=== PATIENT | female | born 1975 | race Caucasian/White ===

== ENCOUNTER 2017-09-30 16:16 | Emergency (ER) | payer OTHER, SELFPAY ==
[2017-09-30 16:17] VITALS: BP 146/62; PULSE 111; RESP 16; TEMP 37; O2SAT 98; BMI 38.9
--- NOTE | 2017-09-30 16:33 | ED.VISSUMM ---
- ER Visit Summary Date of Service: 09/30/17 Chief Complaint: Panic attack History of Present Illness: The patient is a 42 F history of anxiety. Patient states she has been fighting anxiety her whole life. Currently he is on Paxil and BuSpar. Driving home from work today, anxiety attack coming on. She was brought in today by her mother. She denies other symptoms. She is a ivz-incdfxh-kvlbtklyq diabetic. Physical Examination: Well appearing middle-aged female. Vital signs are stable afebrile. She does not look septic or toxic. She currently no acute distress. She is anxious but she is controlling it well currently. H EENT exam unremarkable and mildly tearful. Neck nontender no lymphadenopathy. Lungs clear all station bilaterally. Heart regular rhythm rate about 100 no murmur. Abdomen soft nontender. She is moving all 4 extremities. They are neurovascularly intact. She is equal and symmetrical radial pulses. Neurologically she is awake and alert with no focal motor deficits. Test Results: None Emergency Department Course and Treatment: Acute on chronic anxiety. She will be given 1 p.o. Ativan here. Observed she is doing well she will be discharged home. Treatment Plan: Use her home medications for anxiety. Follow-up with her physician. Disposition: Discharge Impression: Acute on chronic anxiety with panic attack History of ahx-hlhmkwn-mrskgtfrl diabetes This note was generated with [employer] dictation software. It may contain incorrect words, spelling, and punctuation that were not noted in review of the chart prior to signing ED Disposition - Plan for ED Patient: Chief Complaint: Anxiety Referrals: Kenia Leon MD [Primary Care Provider] -
--- NOTE | 2017-09-30 16:35 | ED.DEP ---
ED Disposition - Plan for ED Patient: Disposition: Home or Assisted Living Chief Complaint: Anxiety Instructions: ED Panic Attack Referrals: Kenia Leon MD [Primary Care Provider] - As Needed Additional Instructions: Follow-up with your physician as needed. Medications as prescribed. Return if feeling worse.
[2017-09-30] MEDS: LORazepam 1 MG Tablet PO ×2 (16:42→17:29)
== END 2017-09-30 17:31 | disposition home or self-care (01) ==
PROVIDERS: Emergency Provider Emergency Medicine; Family Provider Internal Medicine; PCP Internal Medicine
DX: F41.0 Panic disorder [episodic paroxysmal anxiety] (principal); E11.9 Type 2 diabetes mellitus without complications; Z79.84 Long term (current) use of oral hypoglycemic drugs; Z72.0 Tobacco use
CPT/HCPCS: 99283

== ENCOUNTER 2017-11-12 13:20 | Emergency (ER) | payer SELFPAY ==
[2017-11-12 13:20] VITALS: BP 198/123; PULSE 117; RESP 18; TEMP 36.3; O2SAT 98; BMI 38.2
--- NOTE | 2017-11-12 13:55 | ED.VISSUMM ---
- ER Visit Summary Date of Service: 11/12/17 Chief Complaint: Dizziness History of Present Illness: The patient is a 42 F who presents with dizziness and difficulty walking that began today. Patient states she was started on Vistaril and took her first dose today at approximately 10:30 AM. Patient states she has been getting more dizzy and has been having more difficulty walking ever since she took the Vistaril. Patient states this became worse approximately 1 hour ago. Patient states her dizziness improves when she closes her eyes. Patient denies any headaches. Patient denies any nausea or vomiting. Patient denies any chest pain. Patient denies any shortness of breath. Physical Examination: Vital signs are stable except for an elevated blood pressure 198/123 and a tachycardia of 117. Patient was anxious and tearful on exam. Cranial nerves II through XII are intact. There are no focal motor or sensory deficits noted. Pupils are equal, round, and reactive to light bilaterally. Extraocular muscles are intact. There is some mild nystagmus with right lateral gaze. Heart was regular and tachycardic. Lungs are clear and equal bilaterally. There is good respiratory effort noted. Abdomen is soft. Bowel sounds are normal. There is no tenderness. The remaining physical exam is within normal limits. Test Results: CBC is within normal limits. Basic metabolic profile showed a slightly elevated glucose of 130, CO2 was 19, chloride was slightly elevated at 108. CT scan of the brain does not show any acute intracranial abnormality. Emergency Department Course and Treatment: Patient was given a dose of lorazepam here. Patient felt better on reevaluation. Patient was instructed to follow-up with her primary care physician in 5-7 days. Patient was instructed to avoid taking her Vistaril. Patient understood and was agreeable with the plan. All questions were answered. Disposition: Discharge home Impression: Acute anxiety This note was generated with [employer] dictation software. It may contain incorrect words, spelling, and punctuation that were not noted in review of the chart prior to signing ED Disposition - Plan for ED Patient: Disposition: Home or Assisted Living Chief Complaint: Neuro S/Sx Diagnosis: Acute anxiety Instructions: ED Panic Attack Referrals: Kenia Leon MD [Primary Care Provider] -
[2017-11-12] MEDS: 0.9% Normal Saline 1,000 ML 1000 ML IV (14:12)
[2017-11-12] MEDS: LORazepam 1 MG Tablet PO (14:12)
[2017-11-12 14:25] LABS: Absolute Lymphocyte Count 2.01 X10^3/ul (0.83-4.51); Absolute Neutrophil Count 7.8 X10^3/uL (2.0-7.7); Basophil# 0.04 X10^3/uL; Basophil% 0.4 % (0-1); Eosinophil# 0.09 X10^3/uL; Eosinophils% 0.9 % (0-5); Hematocrit 42.3 % (37-47); Hemoglobin 14.1 g/dl (12.0-15.0); Lymphocyte # 2.01 X10^3/ul (4.0); Lymphocyte % 19.4 % (19-41); Mean Corp Hgb Conc 33.3 g/gl (32-36); Mean Corpuscular Hgb 28.7 pg (27.0-32.0); Mean Platelet Vol. 9.5 fl (6.2-12.0); Monocyte# 0.39 X10^3/uL; Monocyte% 3.8 % (0-10); Neutrophil # 7.83 X10^3/uL (2.7-7.7); Neutrophil % 75.4 % (47-70); Platelet Count 226 K/mm3 (150-450); RBC Distribution Width CV 14.2 % (11.6-14.6); RBC Distribution Width SD 44.4 fl (35.1-43.9); Red Blood Count 4.92 M/mm3 (4.2-5.4); White Blood Count 10.4 K/mm3 (4.4-11.0)
[2017-11-12 14:27] LABS: POSITIVE COUNT NO; POSITIVE DIFFERENTIAL NO; POSITIVE MORPHOLOGY NO
[2017-11-12 15:00] VITALS: BP 125/78; PULSE 83; RESP 20; O2SAT 97
[2017-11-12 15:18] LABS: ALB/GLOB Ratio 0.8 RATIO (0.9-2.4); AST(SGOT) 23 U/L (15-37); Alanine Aminotransfer ALT/SGPT 18 U/L (13-56); Albumin, Serum 3.4 g/dL (3.2-5.0); Alkaline Phosphatase 112 U/L (45-117); Anion Gap 9 (5-15); BUN 11 mg/dL (7-18); BUN/Creat Ratio 13.8 RATIO (10-20); Calcium,Total 8.7 mg/dL (8.5-10.1); Chloride 108 mmol/L (98-107); EST Glomerular Filtration Rate 84 mL/min (>60); Est Glom Filt Rate - Afr Amer 102 mL/min (>60); Estimated Creatinine Clearance 86.63 ml/min; Globulin 4.2 g/dL (2.2-4.2); Glucose 130 mg/dL (74-106); Potassium 3.9 mmol/L (3.5-5.1); Protein, Total 7.6 g/dL (6.4-8.2); Sodium Level 136 mmol/L (136-145)
[2017-11-12 15:50] VITALS: BP 127/86; PULSE 78; RESP 15; O2SAT 96
== END 2017-11-12 15:55 | disposition home or self-care (01) ==
PROVIDERS: Emergency Provider Emergency Medicine; Family Provider Internal Medicine; PCP Internal Medicine
DX: F41.9 Anxiety disorder, unspecified (principal); E11.9 Type 2 diabetes mellitus without complications; Z79.84 Long term (current) use of oral hypoglycemic drugs; Z79.899 Other long term (current) drug therapy; Z72.0 Tobacco use
CPT/HCPCS: 70450; 80053; 85025; 96360; 96361; 99285; J7030

== ENCOUNTER 2017-11-18 20:55 | Emergency (ER) | payer SELFPAY ==
[2017-11-18 20:56] VITALS: BP 173/118; PULSE 98; RESP 18; TEMP 37.1; O2SAT 100; BMI 38.2
--- NOTE | 2017-11-18 22:27 | ED.VISSUMM ---
- ER Visit Summary Date of Service: 11/18/17 Chief Complaint: Anxiety History of Present Illness: The patient is a [address] Leon. She reports that she has been seeing Topher Bocanegra, Dr. Leon has nurse practitioner, and has had a number of changes and her anxiety medications over the past month. She reports that her anxiety is much worse than usual. She is concerned about whether or not she can take Vistaril and Ativan together. Physical Examination: Vitals: Stable. Afebrile. General: Well-nourished and well-developed. Head: Normocephalic atraumatic. Neck: Supple, no lymphadenopathy. No JVD. Nontender. Cardiovascular: Regular rate and rhythm. No murmurs. Respiratory: No respiratory distress. Clear to auscultation bilaterally. Abdominal: Soft, nontender, nondistended, normal bowel sounds. No guarding, rebound, or peritoneal signs. Back: Nontender. Extremities: Nontender, no edema. Skin: Normal color, no rash. Neurologic: Alert and oriented ?3. Cranial nerves II through XII are intact. Normal strength and sensation. Mental status exam: Patient appears their stated age. Good posture and grooming. Good eye contact. Normal rate, volume, and latency of speech. No suicidal or homicidal ideation. No auditory or visual hallucinations. Flow of thought is logical. Insight and judgment is fair. Emergency Department Course and Treatment: Had a prolonged discussion with the patient about the treatment of her anxiety. States that the Ativan is not working well. I suggested that she take scheduled Vistaril and Ativan as needed in addition if needed. Treatment Plan: Patient is instructed to follow-up with the nurse practitioner soon as possible. She also reports that she has an appointment to see a psychiatrist in 1 week. Return to the emergency department for any worsening symptoms. Disposition: To home in improved and stable condition. Impression: 1. Anxiety. This note was generated with [employer] software. It may contain incorrect words, spelling, and punctuation that were not noted in review of the chart prior to signing ED Disposition - Plan for ED Patient: Disposition: Home or Assisted Living Chief Complaint: Anxiety Instructions: ED Panic Attack Referrals: Kenia Leon MD [Primary Care Provider] - As soon as possible
[2017-11-18 22:40] VITALS: RESP 16
== END 2017-11-18 22:50 | disposition home or self-care (01) ==
PROVIDERS: Emergency Provider Emergency Medicine; Family Provider Internal Medicine; PCP Internal Medicine
DX: F41.9 Anxiety disorder, unspecified (principal)
CPT/HCPCS: 99282

== ENCOUNTER 2018-04-30 11:06 | Emergency (ER) | payer OTHER, SELFPAY ==
[2018-04-30 11:07] VITALS: BP 176/98; PULSE 118; RESP 16; TEMP 36.6; O2SAT 98; BMI 38.7
--- NOTE | 2018-04-30 11:22 | ED.VISSUMM ---
- ER Visit Summary Date of Service: 04/30/18 Chief Complaint: Anxiety History of Present Illness: The patient is a 42 F history of anxiety and panic attacks. Also history of buw-yyihmpq-tezpqinpb diabetes and hypertension. Patient states that she has been dealing with anxiety and panic attacks her entire life. Currently she is on Xanax, Effexor and amitriptyline. She has been seeing a psychologist. They have her scheduled to see a psychiatrist and Garcia tomorrow. She states that she has been using increasing dosages of her Xanax to try to control her symptoms. She said it does not seem to be working. She is not suicidal. She is concerned that something is being managed medically. Physical Examination: Middle-aged female crying and tearful. Vital signs are stable. She does not look septic or toxic. She is emotionally distraught. H EENT exam unremarkable. Neck nontender. Lungs clear to auscultation bilaterally. Heart regular rhythm rate about 115. No murmur. Abdomen is soft and nontender. Normal bowel sounds. No peritoneal signs. Patient is moving all 4 extremities. Calves are nontender. Neurologically she is awake and alert with no focal motor deficits. Back is nontender. Skin is unremarkable. There are no signs of trauma. Test Results: None. I reviewed the patient's recent labs and she is had prior CAT scans all of which were negative. Emergency Department Course and Treatment: P.o. Ativan here. Treatment Plan: Short prescription of Ativan for the next couple days. Follow-up with her psychiatrist tomorrow. Disposition: Discharge Impression: Acute on chronic anxiety with panic attacks This note was generated with [employer] software. It may contain incorrect words, spelling, and punctuation that were not noted in review of the chart prior to signing ED Disposition - Plan for ED Patient: Referrals: Kenia Leon MD [Primary Care Provider] -
--- NOTE | 2018-04-30 11:25 | ED.DCSUM_ITS ---
- ER Visit Summary Date of Service: 04/30/18 Chief Complaint: Anxiety History of Present Illness: The patient is a 42 F history of anxiety and panic attacks. Also history of rpc-kfcswpb-btonpueed diabetes and hypertension. Patient states that she has been dealing with anxiety and panic attacks her entire life. Currently she is on Xanax, Effexor and amitriptyline. She has been seeing a psychologist. They have her scheduled to see a psychiatrist and Garcia tomorrow. She states that she has been using increasing dosages of her Xanax to try to control her symptoms. She said it does not seem to be working. She is not suicidal. She is concerned that something is being managed medically. Physical Examination: Middle-aged female crying and tearful. Vital signs are stable. She does not look septic or toxic. She is emotionally distraught. H EENT exam unremarkable. Neck nontender. Lungs clear to auscultation bilaterally. Heart regular rhythm rate about 115. No murmur. Abdomen is soft and nontender. Normal bowel sounds. No peritoneal signs. Patient is moving al l 4 extremities. Calves are nontender. Neurologically she is awake and alert with no focal motor deficits. Back is nontender. Skin is unremarkable. There are no signs of trauma. Test Results: None. I reviewed the patient's recent labs and she is had prior CAT scans all of which were negative. Emergency Department Course and Treatment: P.o. Ativan here. Treatment Plan: Short prescription of Ativan for the next couple days. Follow- up with her psychiatrist tomorrow. Disposition: Discharge Impression: Acute on chronic anxiety with panic attacks This note was generated with [employer] software. It may contain incorrect words, spelling, and punctuation that were not noted in review of the chart prior to signing ED Disposition - Plan for ED Patient: Referrals: Kenia Leon MD [Primary Care Provider] -
--- NOTE | 2018-04-30 11:25 | ED.DEP ---
ED Disposition - Plan for ED Patient: Disposition: Home or Assisted Living Instructions: ED Panic Attack Prescriptions: Lorazepam [Ativan] 1 mg PO TID #7 tab Referrals: Kenia Leon MD [Primary Care Provider] - As Needed Additional Instructions: Ativan as needed for your anxiety. Continue your current medications. Very important to follow-up with your psychiatrist appointment tomorrow. Return if feeling worse.
[2018-04-30] MEDS: LORazepam 1 MG Tablet PO (11:37)
[2018-04-30 11:50] VITALS: RESP 14
== END 2018-04-30 12:17 | disposition home or self-care (01) ==
LOC: ED 11:37
PROVIDERS: Emergency Provider Emergency Medicine; Family Provider Internal Medicine; PCP Internal Medicine
DX: F41.0 Panic disorder [episodic paroxysmal anxiety] (principal); I10 Essential (primary) hypertension; E11.9 Type 2 diabetes mellitus without complications; Z79.84 Long term (current) use of oral hypoglycemic drugs; Z79.899 Other long term (current) drug therapy; Z72.0 Tobacco use
CPT/HCPCS: 99284

== ENCOUNTER 2018-07-11 18:21 | Emergency (ER) | payer OTHER, SELFPAY ==
[2018-07-11 18:23] VITALS: BP 157/70; PULSE 95; RESP 18; TEMP 36.7; O2SAT 98; BMI 38.2
--- NOTE | 2018-07-11 18:40 | CT_ITS ---
STUDY: CT BRAIN WITHOUT CONTRAST REASON FOR EXAM: Female, 42 years old. Double vision. Blurred vision. Anxiety. RADIATION DOSAGE (If Supplied By Facility): CTDIvol = ( 44.99 ) mGy, DLP = ( 779.24 ) mGycm TECHNIQUE: Transaxial CT imaging of the brain was performed without administration of intravenous contrast material. Individualized dose optimization techniques were used for this CT. COMPARISON: November 12, 2017. FINDINGS: Normal soft tissue structures. Normal calvarium. Normal size ventricles and extra-axial spaces for the patient's age. Normal white matter tracts of the cerebral hemispheres. Normal basal ganglia and thalami. Normal brainstem. Normal cerebellum. There is no intracranial hemorrhage. There are no findings of an acute ischemic infarction. Normal visualized paranasal sinuses. CT/Brain/Head without Contrast IMPRESSION: Normal unenhanced CT scan of the brain. Electronically Signed: Reid Godoy MD at 19:27 EDT , Service support ,
--- NOTE | 2018-07-11 18:41 | EKG12_ITS ---
Test Reason : NUMB Blood Pressure : / mmHG Vent. Rate : 081 BPM Atrial Rate : 081 BPM P-R Int : 164 ms QRS Dur : 100 ms QT Int : 378 ms P-R-T Axes : 052 056 050 degrees QTc Int : 439 ms Normal sinus rhythm Normal ECG Confirmed by SHERIN MATIAS, BETSY ([id number]), editor newspaper JAIME PATRICK ([id number]) on 07/16/2018 10:52:54 AM Referred By: DENNYS Confirmed By:BETSY DUFF MD
[2018-07-11] MEDS: 0.9% Normal Saline 1,000 ML 1000 ML IV (18:55)
[2018-07-11 19:21] LABS: Absolute Lymphocyte Count 3.42 X10^3/ul (0.83-4.51); Absolute Neutrophil Count 5.9 X10^3/uL (2.0-7.7); Basophil# 0.03 X10^3/uL; Basophil% 0.3 % (0-1); Hematocrit 37.7 % (37-47); Hemoglobin 12.4 g/dl (12.0-15.0); Lymphocyte # 3.42 X10^3/ul (4.0); Lymphocyte % 34.5 % (19-41); Mean Corp Hgb Conc 32.9 g/gl (32-36); Mean Corpuscular Hgb 26.4 pg (27.0-32.0); Mean Corpuscular Volume 80.2 fL (81-99); Mean Platelet Vol. 9.5 fl (6.2-12.0); Monocyte# 0.51 X10^3/uL; Monocyte% 5.1 % (0-10); Neutrophil # 5.85 X10^3/uL (2.7-7.7); Platelet Count 294 K/mm3 (150-450); RBC Distribution Width CV 14.7 % (11.6-14.6); RBC Distribution Width SD 42.7 fl (35.1-43.9); White Blood Count 9.9 K/mm3 (4.4-11.0)
[2018-07-11 19:23] LABS: Anion Gap 7 (5-15); BUN 14 mg/dL (7-18); BUN/Creat Ratio 17.5 RATIO (10-20); Calcium,Total 8.7 mg/dL (8.5-10.1); Chloride 103 mmol/L (98-107); EST Glomerular Filtration Rate 84 mL/min (>60); Est Glom Filt Rate - Afr Amer 101 mL/min (>60); Estimated Creatinine Clearance 86.63 ml/min; Glucose 208 mg/dL (74-106); Potassium 3.9 mmol/L (3.5-5.1); Sodium Level 134 mmol/L (136-145)
[2018-07-11 19:28] LABS: POSITIVE COUNT NO; POSITIVE DIFFERENTIAL NO; POSITIVE MORPHOLOGY NO
[2018-07-11 19:58] LABS: Internal QC Validated? YES +Cl - CLEAR BKGD; Pregnancy, Serum, hCG Quali. NEGATIVE Negative
--- NOTE | 2018-07-11 21:22 | ED.DCSUM_ITS ---
- ER Visit Summary Date of Service: 07/11/18 Chief Complaint: Double vision History of Present Illness: The patient is a [address] Duncan. She reports that she has double vision that began approximately 5:00 this evening. States that she has had 2 episodes and each of the last approximately 20 min utes. During these episodes she also reports that her vision was blurred. Her face felt flushed. She reports that the tip of her tongue became numb and she had perioral numbness the second time. This was circumferential. She denies any difficulty talking. She denies any expressive or receptive aphasia. No vertigo. No weakness to her arms or her legs. No numbness to her arms or legs. Patient reports that she does have a long-standing history of anxiety. She has seen a psychiatrist and today was the first day that she was changed from Xanax 0.5 mg twice daily to Klonopin 0.5 mg twice daily. She took her second dose of this approximately an hour prior to the onset of the symptoms. She has not worn glasses for approximately 12 years. No contacts. However, she does have an appointment to see an weaver dobby loom in 2 weeks. Physical Examination: Vitals: Stable. Afebrile. General: Well-nourished and well-developed. Head: Normocephalic atraumatic. Neck: Supple, no lymphadenopathy. No JVD. Nontender. Cardiovascular: Regular rate and rhythm. No murmurs. Respiratory: No respiratory distress. Clear to auscultation bilaterally. Abdominal: Soft, nontender, nondistended, normal bowel sounds. No guarding, rebound, or peritoneal signs. Back: Nontender. Extremities: Nontender, no edema. Skin: Normal color, no rash. Neurologic: Alert and oriented ?3. Cranial nerves II through XII are intact. Normal strength and sensation. NIH scale is 0. Vision is normal at this time. Psych: Normal affect. Test Results: EKG is sinus at 81 with no acute changes. CBC is normal. Chem-7 is marked for sodium 134 and glucose of 2 8. test is negative. Clinical Impression(s) from Imaging Studies Brain CT 07/11/18 18:40 IMPRESSION: Normal unenhanced CT scan of the brain. Electronically Signed: Reid Godoy MD at 19:27 EDT , Service support , Emergency Department Course and Treatment: Patient rested comfortably while here. She had no double vision while here. Her NIH scale is 0. I did discuss with her that the dose from Xanax to Klonopin is lower than usual and offered her Ativan. However, she refused this. Treatment Plan: This time I feel patient is stable for discharge. She will be discharged with instructions to follow-up Dr. Judd tomorrow for another exam. Follow-up with Dr. Leon as soon as possible. Return to the emergency d epartment for any worsening symptoms. Disposition: To home in improved and stable condition. Impression: 1. Transient diplopia, uncertain cause. This note was generated with [employer] dictation software. It may contain incorrect words, spelling, and punctuation that were not noted in review of the chart prior to signing ED Disposition - Plan for ED Patient: Disposition: Home or Assisted Living Instructions: ED Double Vision Referrals: Kenia Leon MD [Primary Care Provider] - 1 Day for another exam Damion Judd MD [STAFF PHYSICIAN] - As soon as possible
[2018-07-11 21:52] VITALS: BP 108/62; PULSE 98; RESP 16; O2SAT 96
== END 2018-07-11 21:53 | disposition home or self-care (01) ==
LOC: ED 18:47
PROVIDERS: Emergency Provider Emergency Medicine; Family Provider Internal Medicine; PCP Internal Medicine
DX: H53.2 Diplopia (principal); F41.9 Anxiety disorder, unspecified; E11.9 Type 2 diabetes mellitus without complications; Z79.84 Long term (current) use of oral hypoglycemic drugs; Z72.0 Tobacco use
CPT/HCPCS: 70450; 80048; 84703; 85025; 93005; 96360; 96361; 99284; J7030

== ENCOUNTER → 2019-12-06 17:09 | Outpatient (CLI) | payer MEDICAID, SELFPAY | PROVIDERS: PCP Nurse Practitioner Primary Care; Referring Provider Clinical Nurse Specialist; Visit Provider Clinical Nurse Specialist | DX: J40 Bronchitis, not specified as acute or chronic (principal) | CPT/HCPCS: 87635; C9803; U0003 ==

== ENCOUNTER 2020-05-27 19:48 | Emergency (ER) | payer MEDICAID, SELFPAY ==
[2020-05-27 19:49] VITALS: BP 123/90; PULSE 100; RESP 18; TEMP 36.4; O2SAT 98; BMI 38.7
--- NOTE | 2020-05-27 20:03 | CT_ITS ---
STUDY: CTA CHEST REASON FOR EXAM: Female, 44 years old. chest/back pain RADIATION DOSAGE (If Supplied By Facility): CTDIvol = ( 16.76 ) mGy, DLP = ( 1710.49 ) mGycm TECHNIQUE: The examination was performed with the intravenous administration of IV 100mL Isovue-370. Post-processing of the angiographic images was performed, with multiplanar reformation and 3D reconstruction. Individualized dose optimization techniques were used for this CT. COMPARISON: None. FINDINGS: Normal enhancement of the main pulmonary artery and right and left pulmonary arteries. Normal enhancement of the bilateral peripheral pulmonary arteries. There is no demonstrated pulmonary embolism. Normal thoracic aorta and visualized great vessels. There is no demonstrated aortic dissection. Normal heart and pericardium. Normal mediastinum. Normal hilar regions. Normal visualized trachea and bronchi. The lungs are well expanded. Normal pulmonary parenchyma. Normal pleura. Normal chest wall structures. Normal osseous structures. Normal visualized upper abdomen. CT/CTA Chest W/WO Contrast IMPRESSION: Normal CTA chest examination, without a demonstrated pulmonary embolism or arterial dissection. Electronically Signed: Lacey Schroeder MD at 21:30 EST , Service support ,
--- NOTE | 2020-05-27 20:04 | ED.VISSUMM ---
- ER Visit Summary Date of Service: 05/27/20 Chief Complaint: [Right side pain] History of Present Illness: The patient is a 44 F [[place] to the emergency department with complaint of pain in her right side for 3 to 4 months. Patient states that she had Covid in January and she thinks she has had pain since about that time. Patient states the pain is there all the time and she has a hard time getting out of bed secondary the pain. Pain is at times radiating to her back. Pain worse with breathing and movement. Mild increase in dyspnea with activity. Patient states that she had an asthmatic bronchitis flare a couple weeks ago where she was on prednisone as well as antibiotic after she had all her teeth pulled. Patient has history of diabetes, hypertension, high cholesterol. She is never had a PE or DVT. 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 Physical Examination: [HEENT-PERRLA, EOMI. Cranial nerves II through XII grossly intact. TMs clear. Mucous membranes moist. No adenopathy. Cardiovascular-regular rate and rhythm without murmur or ectopy Lungs-clear to auscultation, chest wall stable without crepitus or subcu emphysema. I am unable to reproduce her pain with palpation of the chest wall. Abdomen-normoactive bowel sounds, soft, nontender, no rebound or rigidity, no peritoneal signs. Extremities-intact ?4, normal range of motion, normal pulses, atraumatic] Test Results: [cbc unremarkable, bmp unremarkable, glucose 238, CT-flank- unremarkable, CTA-chest normal ] Emergency Department Course and Treatment: [,IV established and refused pain meds.] Treatment Plan: [Follow up with PCP in 3-5 days. Return if worsening pain, or shortness of breath.] Disposition: [Discharged home in stable condition ] Impression: [Right Flank/Back pain] This note was generated with [employer] dictation software. It may contain incorrect words, spelling, and punctuation that were not noted in review of the chart prior to signing ED Disposition - Plan for ED Patient: Referrals: Topher Bocanegra NP, MARKETING REP-C [Primary Care Provider] -
--- NOTE | 2020-05-27 20:11 | CT_ITS ---
STUDY: CT ABDOMEN AND PELVIS WITHOUT CONTRAST REASON FOR EXAM: Female, 44 years old. flank pain RADIATION DOSAGE (If Supplied By Facility): CTDIvol = ( 16.76 ) mGy, DLP = ( 1710.49 ) mGycm TECHNIQUE: Transaxial images were obtained from the dome of the diaphragm to the symphysis pubis without oral contrast, and without intravenous contrast. Sagittal and coronal images were reconstructed. Individualized dose optimization techniques were used for this CT. COMPARISON: None. FINDINGS: The visualized lung bases are unremarkable. The visualized portions of the heart are within normal limits. Normal liver. There are surgical clips in the gallbladder fossa consistent with a prior cholecystectomy. Normal spleen. Normal pancreas. Normal bilateral adrenal glands. Normal right kidney. Normal left kidney. Food filled stomach. Normal small intestine. Normal colon. The appendix is visualized and appears normal. Minimal calcified plaque of the aorta. Normal inferior vena cava. Normal retroperitoneum. Normal urinary bladder. Negative for pelvic mass or free fluid of the pelvis. Normal abdominal wall. Mild degenerative changes of the lumbar spine. CT/Abdomen/Pelvis without Cont IMPRESSION: Status post cholecystectomy. Minimal calcified plaque of the aortic and mild degenerative changes of the lumbar spine. Otherwise normal abdomen and pelvic CT exam. Specifically normal size of the kidneys bilaterally without hydronephrosis or stones. Unremarkable nondistended urinary bladder. Electronically Signed: Lacey Schroeder MD at 21:28 EST , Service support ,
[2020-05-27 20:25] LABS: Absolute Lymphocyte Count 3.43 X10^3/uL (0.83-4.51); Basophil# 0.04 X10^3/uL; Basophil% 0.4 % (0-1); Eosinophil# 0.12 X10^3/uL; Eosinophils% 1.3 % (0-5); Hematocrit 37.9 % (37-47); Hemoglobin 11.7 g/dL (12.0-15.0); Lymphocyte # 3.43 X10^3/ul (4.0); Lymphocyte % 37.2 % (19-41); Mean Corp Hgb Conc 30.9 g/dL (32-36); Mean Corpuscular Hgb 24.9 pg (27.0-32.0); Mean Corpuscular Volume 80.6 fL (81-99); Mean Platelet Vol. 10.3 fl (6.2-12.0); Monocyte% 6.5 % (0-10); NRBC Flagged by Analyzer 0 % (0-5); Neutrophil # 4.99 X10^3/uL (2.7-7.7); Neutrophil % 54.3 % (47-70); Platelet Count 279 K/mm3 (150-450); RBC Distribution Width CV 15.8 % (11.6-14.6); RBC Distribution Width SD 45.6 fl (35.1-43.9); White Blood Count 9.2 K/mm3 (4.4-11.0)
[2020-05-27 20:53] LABS: Anion Gap 8 (5-15); BUN 12 mg/dL (7-18); BUN/Creat Ratio 14.8 RATIO (10-20); Calcium,Total 9.7 mg/dL (8.5-10.1); Chloride 103 mmol/L (98-107); Creatinine, Serum 0.81 mg/dL (0.55-1.02); EST Glomerular Filtration Rate 82 mL/min (>60); Est Glom Filt Rate - Afr Amer 99 mL/min (>60); Estimated Creatinine Clearance 83.84 ml/min; Glucose 238 mg/dL (74-106); Potassium 4.3 mmol/L (3.5-5.1); Sodium Level 138 mmol/L (136-145)
[2020-05-27] MEDS: 0.9% Normal Saline 1,000 ML 150 ML IV (21:00)
[2020-05-27 21:06] LABS: Mucous, Urine 0 SEEN /hpf (<or=2+); Red Blood Cells-Urine 0 SEEN /hpf (0-5)
[2020-05-27 21:26] LABS: Color, Urine Yellow (Yellow); Glucose, Dipstick 1000 mg/dl (Normal); Ketone-Dipstick 5 mg/dl (Negative); Leukocyte Esterase-Dipstick 25 /ul (Negative); Nitrite-Dipstick Negative (Negative); Occult Blood-Urine Negative /ul (Negative); Protein-Dipstick 15 mg/dl (Negative); Specific Gravity, Urine 1.015 (1.002-1.030); Urine Bilirubin Dipstick Negative (Negative); Urine Clarity Sl. Cloudy (Clear); Urine Urobilinogen Normal (Normal)
[2020-05-27 21:31] LABS: Bacteria 1+ /hpf (None Seen); Squamous Epithelial Cells - UA 0-5 SEEN /hpf (5-10); White Blood Cells 0-5 SEEN /hpf (0-5)
[2020-05-27 21:32] LABS: Amorphous Sediment 1+
--- NOTE | 2020-05-27 21:47 | DCINST.ED_ITS ---
ED Disposition - Plan for ED Patient: Instructions: ED Flank Pain, Uncertain Cause Referrals: Topher Bocanegra CHIEF SECURITY OFFICER, CHIEF SECURITY OFFICER-C [Primary Care Provider] - 3-5 Days
--- NOTE | 2020-05-27 21:47 | ED.DEP ---
ED Disposition - Plan for ED Patient: Instructions: ED Flank Pain, Uncertain Cause Referrals: Topher Bocanegra RN UNIT MANAGER, RN UNIT MANAGER-C [Primary Care Provider] - 3-5 Days
[2020-05-27 21:57] VITALS: BP 124/70; PULSE 77; RESP 17; O2SAT 98
== END 2020-05-27 21:59 | disposition home or self-care (01) ==
PROVIDERS: Emergency Provider Emergency Medicine; PCP Nurse Practitioner Primary Care
DX: R10.9 Unspecified abdominal pain (principal); M54.9 Dorsalgia, unspecified
CPT/HCPCS: 71275; 74176; 80048; 81001; 85025; 96360; 99285; Q9967; A4216

== ENCOUNTER 2020-07-16 07:14 | Day surgery (SDC) | payer MEDICAID, SELFPAY ==
[2020-07-16] VITALS (9 sets, daily range): BP systolic 85–110; BP diastolic 52–71; PULSE 72–77; RESP 16; TEMP 36.3–36.9; O2SAT 92–99; BMI 38.1
[2020-07-16 07:44] LABS: Internal QC Validated? YES +Cl - CLEAR BKGD; Pregnancy, Urine Negative Negative
[2020-07-16] MEDS: Acetaminophen 500 MG Tablet 1000 MG PO (07:47)
[2020-07-16] MEDS: Celecoxib 200 MG Capsule 400 MG PO (07:48)
[2020-07-16] MEDS: Lactated Ringers 1,000 ML 100 ML IV ×2 (07:49→09:38)
[2020-07-16 08:26] LABS: Bedside Glucose 199 mg/dL (70-110)
[2020-07-16] MEDS: Lidocaine 1%/Epi 1:200 (30ml) 30 ML AMPUL (08:40)
[2020-07-16] MEDS: Levonorgestrel IUD (Liletta) 1 EACH INTRA-UTER (09:00)
[2020-07-16 09:36] LABS: Bedside Glucose 157 mg/dL (70-110)
--- NOTE | 2020-07-16 10:02 | PCM.OPRPT ---
Problems Associated Problem List Diagnoses (1) Menorrhagia: Report of Operation Date of Procedure: 07/16/20 Pre-Operative Diagnosis: menorrhagia, adenomyosis Post-Operative Diagnosis: same Surgery/Procedure Performed:: Hysteroscopy with Adamaris endometrial ablation and Liletta IUD insertion Description of Surgical Findings:: Normal cervix, vagina, endometrial cavity criminal justice social worker: Darlene Fuentes Type of Anesthesia: MAC/Supplemental Anesthesiologist: Lakeisha Rosas Special Medications: none Specimen's removed: none Drains: none Estimated Blood Loss (mL): 5 Fluids Replaced: 500 cc Description of Procedure: The patient was taken to the OR where she was prepped and draped in dorsal lithotomy position. The weighted speculum was placed in the vagina and the anterior lip of the cervix was grasped with a single-tooth tenaculum. A paracervical block was administered with 1% lidocaine with 1-100,000 epinephrine solution. The cervix was dilated serially with Hegar dilators. The 5mm hysteroscope was placed into the uterine cavity and the above findings were noted. Bilateral tubal ostia were identified. The hysteroscope was removed. The uterus sounded to 9 cm, cervical length was 3.5 cm. The Adamaris device was readied and set to 5.5 cm. It was inserted into the endometrial cavity in the usual fashion. The cervical seal balloon was inflated. The cervical seal was created. The device passed the safety checks and the ablation cycle was initiated. The ablation cycle completed uninterrupted. The Adamaris device was removed. The Liletta device was then readied and inserted in the usual sterile fashion and the strings trimmed to 2 cm. Hysteroscopic ins: 400 Hysteroscopic outs:300 cc of normal saline Findings: Endometrial cavity: Normal, no fibroids or polyps noted Cervix: Normal Vagina: Normal Start time 0849 Stop time 0905 Grafts/Implants Used: Liletta IUD Complications none Admit VTE Documentation VTE Present on Admission: No VTE Mechan Device Prophylaxis: SCD's VTE Pharm Prophylaxis ordered?: No Reason prophylaxis not ordered:: Procedure Not Indicated
--- NOTE | 2020-07-16 10:07 | PCM.DC ---
Discharge Instructions Outpatient Procedure Reason For Visit: HYSTEROSCOPY ENDOMETRIAL ABLATION IUD INSERTION Diet Discharge Diet: No restrictions Activity May resume sexual activity in: 2 weeks Follow Up Care Please Follow Up With: Courtney Pereira MD When: [phone] Follow up in my office as needed. Test Results: Test results from this visit will be discussed in further detail at your follow-up appointment, if applicable. Discharge Plan Admission Primary Reason for Your Visit: Endometrial ablation Attending Provider: Courtney Pereira Primary Care Provider: Kenia Leon Instructions Patient Instructions: Endometrial Ablation Discharge Orders/Prescriptions Prescriptions: New oxycodone 5 MG tablet 5 mg PO Q6H PRN PRN (Reason: severe pain) 3 Days Qty: 7 RF: 0 Continued metformin 500 MG tablet extended release 24 hr 1,000 tab PO BID RF: 0 losartan 25 MG tablet 25 mg PO DAILY RF: 0 propranolol 40 MG tablet 40 mg PO DAILY RF: 0 albuterol sulfate 1 PUFF inhaler 1 - 2 puff PO Q4H PRN PRN (Reason: Shortness Of Breath) RF: 0 clonazepam 1 MG tablet 1 mg PO BID RF: 0 paroxetine HCl 20 MG tablet 40 mg PO DAILY RF: 0 propranolol 20 MG tablet 20 mg PO QHS RF: 0 rosuvastatin 5 MG tablet 5 mg PO DAILY RF: 0 liraglutide 0.6 MG/0.1 ML pen injector 1.8 mg SQ QHS RF: 0 pioglitazone [Actos] 15 mg Tablet 15 mg PO DAILY RF: 0 Referrals: Kenia Leon MD [Primary Care Provider] - Disposition Discharge Orders: Discharge Patient (Routine); Ordered 07/16/20 Ordered By: Dr. Courtney Pereira
== END 2020-07-16 10:23 | disposition home or self-care (01) ==
LOC: SDC 07:14 → AC 07:15
PROVIDERS: Anesthesiology; PCP Internal Medicine; Referring Provider Obstetrics & Gynecology; Visit Provider Obstetrics & Gynecology
PROC: 0U5B8ZZ Destruction of Endometrium, Via Natural or Artificial Opening Endoscopic (ICD-10-PCS; CPT 58558; principal; 2020-07-16 08:30)
DX: N92.0 Excessive and frequent menstruation with regular cycle (principal); N80.0 Endometriosis of uterus; Z30.430 Encounter for insertion of intrauterine contraceptive device; I10 Essential (primary) hypertension; E11.9 Type 2 diabetes mellitus without complications; E78.00 Pure hypercholesterolemia, unspecified; F41.9 Anxiety disorder, unspecified; F17.200 Nicotine dependence, unspecified, uncomplicated; Z20.822 Contact with and (suspected) exposure to COVID-19; Z79.84 Long term (current) use of oral hypoglycemic drugs; Z79.899 Other long term (current) drug therapy
CPT/HCPCS: 00952; 58300; 58563; 81025; 82962; 87426; C9803; J7120; J2405

== ENCOUNTER 2020-11-25 17:44 | Emergency (ER) | payer MEDICAID, SELFPAY ==
[2020-11-25 17:45] VITALS: BP 126/83; PULSE 79; RESP 18; TEMP 36.9; O2SAT 95; BMI 39.6
== END 2020-11-25 19:36 | disposition left against medical advice (07) ==
LOC: ED 20:02
PROVIDERS: PCP Internal Medicine
DX: J00 Acute nasopharyngitis [common cold] (principal); Z53.21 Procedure and treatment not carried out due to patient leaving prior to being seen by health care provider
CPT/HCPCS: 87426

== ENCOUNTER 2021-09-24 13:46 | Emergency (ER) | payer MEDICAID, SELFPAY ==
[2021-09-24 13:46] VITALS: BP 113/76; PULSE 91; RESP 18; TEMP 36.3; O2SAT 96; BMI 41.9
--- NOTE | 2021-09-24 14:16 | EKG12_ITS ---
Test Reason : CP Blood Pressure : / mmHG Vent. Rate : 077 BPM Atrial Rate : 077 BPM P-R Int : 172 ms QRS Dur : 096 ms QT Int : 368 ms P-R-T Axes : 051 074 047 degrees QTc Int : 416 ms Normal sinus rhythm Normal ECG Confirmed by JAE MATIAS, ANAND ([id number]), loan expeditor JAIME PATRICK ([id number]) on 09/28/2021 8:53:18 AM Referred By: PL Confirmed By:ANAND ROWE MD
--- NOTE | 2021-09-24 14:17 | EDS_ITS ---
HPI <AKASH Marquez - Last Filed: 09/24/21 15:42> History of Present Illness Chief Complaint: Chest Pain Narrative Narrative: 46-year-old female with history of hypertension, hyperlipidemia, obesity, diabetes presents to the emergency department with complaints of consistent midsternal chest pain that is been ongoing for the last 48 hours. Patient states that she was just sitting there when she developed midsternal chest pain, she states that has been consistent, does not wax or wane. Today she was more concerned, her sister had a heart attack and 45, she has family heart history and is here for evaluation. Patient denies any shortness of breath, cough. Denies any fevers or chills. [facility] <AKASH Marquez - Last Filed: 09/24/21 15:42> [facility] Medical History (Updated 09/24/21 @ 15:40 by AKASH Marquez) Hyperlipidemia Sleep apnea Home Medications metformin 500 mg tablet,extended release 24 hr 1,000 tab PO BID 10/19/15 [History Last Taken Unknown] losartan 25 mg tablet 25 mg PO DAILY 04/30/18 [History Last Taken 07/16/20] propranolol 40 mg tablet 40 mg PO DAILY 07/11/18 [History Last Taken 07/16/20] albuterol sulfate 90 mcg/actuation aerosol inhaler 1 - 2 puff PO Q4H PRN PRN Shortness Of Breath 05/27/20 [History Last Taken Unknown] clonazepam 1 mg tablet 1 mg PO BID 07/09/20 [History Last Taken Unknown] paroxetine HCl 20 mg tablet 40 mg PO DAILY 07/09/20 [History Last Taken Unknown] propranolol 20 mg tablet 20 mg PO QHS 07/09/20 [History Last Taken Unknown] rosuvastatin 5 mg tablet 5 mg PO DAILY 07/09/20 [History Last Taken Unknown] dulaglutide 1.5 mg/0.5 mL [facility] ea subcut 09/24/21 [History Last Taken Unknown] omeprazole 40 mg capsule,delayed release 40 mg PO DAILY #30 caps 09/24/21 [Rx Last Taken Unknown] rosuvastatin 5 mg tablet mg 09/24/21 [History Last Taken Unknown] Allergy/AdvReac Type Severity Reaction Status Date / Time No Known Allergies Allergy Verified 09/24/21 13:48 Social History Smoking Status: Current every day smoker tobacco type: cigarettes ROS <AKASH Marquez - Last Filed: 09/24/21 15:42> ROS ED ROS Narrative Constitutional: Negative for fever, chills, weight loss, weakness Eyes: Negative for vision loss, vision change, double vision ENT: Negative for any sore throat, ear pain, congestion Cardiovascular: Negative for any tightness, palpitations. Positive for chest pain Respiratory: Negative for any cough, sputum production, hemoptysis, dyspnea, dyspnea on exertion, orthopnea Gastrointestinal: Negative for any abdominal pain, nausea, vomiting, diarrhea, constipation, blood in stool, blood in vomit : Negative for any urinary frequency, dysuria, retention, blood in urine Muscle skeletal: Negative for any muscle joint pain, stiffness, myalgias, arthralgias, neck pain, back pain Neurological: Negative for any headache, syncope, numbness or tingling, dizziness Skin: Negative for any rashes, lumps, itching, abrasions, lacerations Psychiatric: Negative for any depression, anxiety, stress, suicidal ideation, homicidal ideation Hematologic: Negative for any easy bruising, excessive bruising, easy bleeding Allergies: Negative for any eczema, hives, rash EXAM <AKASH Marquez - Last Filed: 09/24/21 15:42> Physical Exam Narrative Exam Narrative: Vital signs reviewed. HEET: Head normocephalic atraumatic, TMs clear bilaterally. Posterior pharynx is clear, moist mucous membranes. Nares clear bilaterally. Neck: Supple with no lymphadenopathy or tenderness. No signs of meningismus, negative jolt sign. Cardiac: Regular rate and rhythm no murmurs gallops or rubs, equal peripheral pulses bilaterally. Respiratory: Lungs clear to auscultation bilaterally. No chest tenderness. Abdomen: Soft, nontender, nondistended. No abdominal bruit or pulsatile masses. No hepatosplenomegaly Extremities: No peripheral edema, no signs of gross trauma or deformity. Active full range of motion of all extremities. Neuro: Cranial nerves II through XII intact, no focal neurological deficits. Skin: Clean dry and intact with no rash, purpura, petechiae, vesicles or pustules. Backs/flank: No CVA tenderness, no midline spinal tenderness, no deformity. Psych: Normal mood and affect. No SI, HI or acute psychosis. Const Vital Signs: 09/24/21 13:46 09/24/21 13:59 09/24/21 14:25 Temperature 97.3 F L Temperature Source Temporal Pulse Rate 91 Respiratory Rate 18 Respiratory Effort Normal Non-Labored Blood Pressure 113/76 Blood Pressure Mean 88 Pulse Ox 96 96 Oxygen Delivery Method Room Air Room Air <Ramirez Mcallister MD - Last Filed: 09/24/21 15:51> Physical Exam Const Vital Signs: 09/24/21 13:46 09/24/21 13:59 09/24/21 14:25 Temperature 97.3 F L Temperature Source Temporal Pulse Rate 91 Respiratory Rate 18 Respiratory Effort Normal Non-Labored Blood Pressure 113/76 Blood Pressure Mean 88 Pulse Ox 96 96 Oxygen Delivery Method Room Air Room Air MDM <AKASH Marquez - Last Filed: 09/24/21 15:42> MDM Lab Data Attestation: I reviewed the patient's lab results. Labs: Laboratory Results - last 24 hr 09/24/21 09/24/21 13:55 13:55 WBC 8.0 RBC 5.09 Hgb 16.3 H Hct 47.3 H MCV 92.9 MCH 32.0 MCHC 34.5 RDW Std Deviation 43.8 RDW Coeff of Debby 12.8 Plt Count 306 MPV 9.9 Immature Gran % (Auto) 0.200 Neut % (Auto) 64.4 Lymph % (Auto) 25.9 Mingo % (Auto) 7.3 Eos % (Auto) 1.7 Baso % (Auto) 0.5 Absolute Neuts (auto) 5.2 Absolute Lymphs (auto) 2.08 Nucleated RBC % 0 Sodium 137 Potassium 3.9 Chloride 104 Carbon Dioxide 27.0 Anion Gap 6 BUN 8 Creatinine 0.86 Estim Creat Clear Calc 77.33 Est GFR (MDRD) Af Amer 92 Est GFR (MDRD) Non-Af 76 BUN/Creatinine Ratio 9.3 L Glucose 134 H Calcium 9.5 Troponin I High Sens < 3 L Radiography Diagnostic Testing: Clinical Impression(s) from Imaging Studies Chest X-Ray 09/24/21 14:45 IMPRESSION: The lungs are clear. Calcific tendinitis of the left shoulder. Electronically Signed: Can Dubose MD at 14:57 EDT , EKG Normal sinus rhythm: Attestation: I personally reviewed and interpreted this EKG as follows: Comments: Normal sinus rhythm, rate of 77 bpm, IN interval 172 ms, QRS duration 96 ms, there is no acute ST elevation or no acute infarct noted Treatment and Re-Evaluation Narrative: Patient appears well, patient appears nontoxic, vital signs are stable. Patient presents to the emergency department with 2 days of consistent midsternal chest pain. Patient did receive a full cardiac work-up. Patient's chest x-ray which was read by the ER physician shows that the lungs are clear no acute process. Patient's laboratory studies show a normal CBC, normal chemistries, troponin was negative. Due to the fact that the chest pain has been ongoing for 2 days, a repeat troponin was not necessary. Patient was given IV Toradol. Physical examination, emergency room testing shows no evidence of acute cardiopulmonary disease. Patient will follow up closely with her PCP. She will be given a proton pump inhibitor on upon discharge. She is instructed to return for any worsening symptoms. Patient stable for discharge. <Ramirez Mcallister MD - Last Filed: 09/24/21 15:51> [facility] Narrative Medical decision making narrative: I have personally performed a face to face assessment of the patient and have reviewed the AMAN Note. I performed a substantive portion of the visit including all aspects of the following. My medrano findings include: History is chest pain x1 to 2 days Exam is afebrile. Vital signs noted. Regular rate and rhythm. Lungs clear to auscultation bilaterally. Resting on cot comfortably. Medical Decision Making check labs. Greater than 3-hour troponin less than 3. Check EKG. Check labs. Check chest x-ray. Discharge. Other additions or changes: [None] Lab Data Labs: Laboratory Results - last 24 hr 09/24/21 09/24/21 13:55 13:55 WBC 8.0 RBC 5.09 Hgb 16.3 H Hct 47.3 H MCV 92.9 MCH 32.0 MCHC 34.5 RDW Std Deviation 43.8 RDW Coeff of Debby 12.8 Plt Count 306 MPV 9.9 Immature Gran % (Auto) 0.200 Neut % (Auto) 64.4 Lymph % (Auto) 25.9 Mingo % (Auto) 7.3 Eos % (Auto) 1.7 Baso % (Auto) 0.5 Absolute Neuts (auto) 5.2 Absolute Lymphs (auto) 2.08 Nucleated RBC % 0 Sodium 137 Potassium 3.9 Chloride 104 Carbon Dioxide 27.0 Anion Gap 6 BUN 8 Creatinine 0.86 Estim Creat Clear Calc 77.33 Est GFR (MDRD) Af Amer 92 Est GFR (MDRD) Non-Af 76 BUN/Creatinine Ratio 9.3 L Glucose 134 H Calcium 9.5 Troponin I High Sens < 3 L Radiography Diagnostic Testing: Clinical Impression(s) from Imaging Studies Chest X-Ray 09/24/21 14:45 IMPRESSION: The lungs are clear. Calcific tendinitis of the left shoulder. Electronically Signed: Can Dubose MD at 14:57 EDT , Discharge Plan Triage Chief Complaint: Chest Pain ED Midlevel Provider: Preet Cummings ED Provider: Ramirez Mcallister Dx/Rx/DC Orders Clinical Impression: Chest pain Prescriptions: New omeprazole 40 mg capsule,delayed release(DR/EC) 40 mg PO DAILY Qty: 30 0RF No Action metformin 500 MG tablet extended release 24 hr 1,000 tab PO BID Label Comments: TAKE 1 TABLET BY MOUTH DAILY losartan 25 MG tablet 25 mg PO DAILY Label Comments: TAKE 1 TABLET BY MOUTH EVERY DAY propranolol 40 MG tablet 40 mg PO DAILY Label Comments: TAKE 1 TABLET IN THE MORNING AND 1/2 TABLET IN THE EVENING albuterol sulfate 1 PUFF inhaler 1 - 2 puff PO Q4H PRN PRN (Reason: Shortness Of Breath) Label Comments: INHALE 2 PUFFS INSTRUCTED EVERY 4 HOURS NEEDED FOR WHEEZING/SHORTNESS OF BREATH. clonazepam 1 MG tablet 1 mg PO BID paroxetine HCl 20 MG tablet 40 mg PO DAILY propranolol 20 MG tablet 20 mg PO QHS rosuvastatin 5 MG tablet 5 mg PO DAILY rosuvastatin 5 mg tablet Label Comments: TAKE 1 TABLET BY MOUTH EVERYDAY AT BEDTIME Trulicity 1.5 mg/0.5 mL pen injector SUBCUT Label Comments: inject 0.5 milliliters ( 1 AND 1/2 milligrams ) subcutaneously every week Primary Care Provider: Kenia Leon Referrals: Kenia Leon MD [Primary Care Provider] - Activity Restrictions/Additional Instructions: You had a negative chest pain work-up today. Please follow-up outpatient Print Language: Israeli Disposition Disposition: Home, Self Care
[2021-09-24 14:25] VITALS: O2SAT 96
[2021-09-24] MEDS: Ketorolac 15 MG/ML Vial IV (14:25)
[2021-09-24 14:34] LABS: Absolute Lymphocyte Count 2.08 X10^3/uL (0.83-4.51); Absolute Neutrophil Count 5.2 X10^3/uL (2.0-7.7); Basophil# 0.04 X10^3/uL; Basophil% 0.5 % (0-1); Eosinophil# 0.14 X10^3/uL; Eosinophils% 1.7 % (0-5); Hematocrit 47.3 % (37-47); Hemoglobin 16.3 g/dL (12.0-15.0); Lymphocyte # 2.08 X10^3/ul (0.83-4.51); Lymphocyte % 25.9 % (19-41); Mean Corp Hgb Conc 34.5 g/dL (32-36); Mean Corpuscular Volume 92.9 fL (81-99); Mean Platelet Vol. 9.9 fl (6.2-12.0); Monocyte# 0.59 X10^3/uL; Monocyte% 7.3 % (0-10); NRBC Flagged by Analyzer 0 % (0-5); Neutrophil # 5.17 X10^3/uL (2.7-7.7); Neutrophil % 64.4 % (47-70); Platelet Count 306 K/mm3 (150-450); RBC Distribution Width CV 12.8 % (11.6-14.6); RBC Distribution Width SD 43.8 fl (35.1-43.9); Red Blood Count 5.09 M/mm3 (4.2-5.4)
--- NOTE | 2021-09-24 14:45 | RAD_ITS ---
STUDY: X-RAY CHEST REASON FOR EXAM: Female, 46 years old. Chest pain TECHNIQUE: Single AP portable view of the chest. COMPARISON: None. FINDINGS: EKG electrodes are seen. The lungs are clear and expanded. There is no demonstrated pleural abnormality. Normal size heart. Normal mediastinum and tere. Normal visualized pulmonary arteries. Normal visualized aortic arch and descending thoracic aorta. There are diffuse degenerative changes of the visualized thoracic spine. Calcific tendinitis of the left shoulder. There is no demonstrated abnormality of the visualized soft tissue structures of the upper abdomen. RAD/Chest 1 View (Portable) IMPRESSION: The lungs are clear. Calcific tendinitis of the left shoulder. Electronically Signed: Can Dubose MD at 14:57 EDT ,
[2021-09-24 14:52] LABS: Anion Gap 6 (5-15); BUN 8 mg/dL (7-18); BUN/Creat Ratio 9.3 RATIO (10-20); Calcium,Total 9.5 mg/dL (8.5-10.1); Chloride 104 mmol/L (98-107); Creatinine, Serum 0.86 mg/dL (0.55-1.02); EST Glomerular Filtration Rate 76 mL/min (>60); Est Glom Filt Rate - Afr Amer 92 mL/min (>60); Estimated Creatinine Clearance 77.33 ml/min; Glucose 134 mg/dL (74-106); Potassium 3.9 mmol/L (3.5-5.1); Sodium Level 137 mmol/L (136-145); Troponin-I HS (w/2H Reflex) < 3 pg/mL (3.0-54.0)
[2021-09-24 15:49] VITALS: RESP 16
[2021-09-24 16:29] LABS: Reflex Troponin-HS? (from REC) Y
== END 2021-09-24 15:50 | disposition home or self-care (01) ==
PROVIDERS: Nurse Practitioner; Emergency Provider Emergency Medicine; PCP Internal Medicine; Visit Provider Emergency Medicine
DX: R07.9 Chest pain, unspecified (principal); Z68.41 Body mass index [BMI] 40.0-44.9, adult; E11.9 Type 2 diabetes mellitus without complications; E78.5 Hyperlipidemia, unspecified; F17.210 Nicotine dependence, cigarettes, uncomplicated; I10 Essential (primary) hypertension; E66.9 Obesity, unspecified; Z79.84 Long term (current) use of oral hypoglycemic drugs; Z79.899 Other long term (current) drug therapy
CPT/HCPCS: 71045; 80048; 84484; 85025; 93005; 96374; 99284; A4216

== ENCOUNTER 2023-02-27 13:30 | Emergency (ER) | payer MEDICAID, SELFPAY ==
[2023-02-27 13:31] VITALS: BP 119/81; PULSE 81; RESP 18; TEMP 36.4; O2SAT 98; BMI 38.7
--- NOTE | 2023-02-27 13:58 | CT_ITS ---
STUDY: CT CHEST WITHOUT CONTRAST REASON FOR EXAM: Female, 47 years old. Right chest wall injury RADIATION DOSAGE (If Supplied By Facility): CTDIvol = ( 19.34 ) mGy, DLP = ( 683.18 ) mGycm TECHNIQUE: Transaxial imaging was performed without the administration of intravenous contrast material. Multiplanar coronal and sagittal images were reformatted. Individualized dose optimization techniques were used for this CT. COMPARISON: Comparison is made with prior examination May 27, 2020. FINDINGS: CHEST The lungs are normal. There is no demonstrated pleural abnormality. Normal heart and pericardium. Normal mediastinum. Normal hilar regions. Normal unenhanced pulmonary arteries. Normal aorta arch and descending thoracic aorta. There are multi-level degenerative changes of the thoracic spine. There is no demonstrated abnormality of the visualized upper abdomen. CT/Chest without Contrast IMPRESSION: No acute abnormality is seen. Electronically Signed: Can Dubose MD at 15:11 EST ,
--- NOTE | 2023-02-27 14:34 | EX.ED.GENINJ ---
HPI History of Present Illness Chief Complaint: Chest Other Informant: patient Narrative Narrative: 47-year-old female states a couple weeks ago she fell injuring her anterior right chest. She states it was a mechanical fall from tripping on the blanket that she was wrapped up and while smoking a cigarette outside. She notes continued pain of the sternum radiating around the right underneath the breast and into the back. No hemoptysis or hematemesis. She notes some cough with some sputum. PFSH PFS Medical History Hyperlipidemia Sleep apnea Home Medications metformin 500 mg tablet,extended release 24 hr 1,000 tab PO BID 10/19/15 [History Last Taken Unknown] losartan 25 mg tablet 25 mg PO DAILY 04/30/18 [History Last Taken 07/16/20] propranolol 40 mg tablet 40 mg PO DAILY 07/11/18 [History Last Taken 07/16/20] albuterol sulfate 90 mcg/actuation aerosol inhaler 1 - 2 puff PO Q4H PRN PRN Shortness Of Breath 05/27/20 [History Last Taken Unknown] clonazepam 1 mg tablet 1 mg PO BID 07/09/20 [History Last Taken Unknown] paroxetine HCl 20 mg tablet 40 mg PO DAILY 07/09/20 [History Last Taken Unknown] propranolol 20 mg tablet 20 mg PO QHS 07/09/20 [History Last Taken Unknown] rosuvastatin 5 mg tablet 5 mg PO DAILY 07/09/20 [History Last Taken Unknown] dulaglutide 1.5 mg/0.5 mL subcutaneous pen injector (Trulicity) ea subcut 09/24/21 [History Last Taken Unknown] omeprazole 40 mg capsule,delayed release 40 mg PO DAILY #30 caps 09/24/21 [Rx Last Taken Unknown] rosuvastatin 5 mg tablet mg 09/24/21 [History Last Taken Unknown] Allergy/AdvReac Type Severity Reaction Status Date / Time No Known Allergies Allergy Verified 02/27/23 13:31 Social History Smoking Status: Current every day smoker tobacco type: cigarettes ROS ROS ED Constitutional Constitutional ED: Denies chills or weight loss Eyes Eyes: Denies change in vision or diplopia ENT ENT ED: Denies ear pain, rhinorrhea or sore throat Cardiovascular Cardiovascular: Reports chest pain; Denies orthopnea, palpitations or racing heartbeat Respiratory/Chest Respiratory/Chest: Denies cough, dyspnea or orthopnea Gastrointestinal Gastrointestinal: Denies abdominal pain, diarrhea, nausea or vomiting Genitourinary Genitourinary ED: Denies dysuria, hematuria or urinary frequency Musculoskeletal Musculoskeletal: Reports back pain; Denies arthralgias or myalgias Integumentary Denies abscess or rash Neurologic Neurologic: Denies headache(s) or weakness Psychiatric Psychiatric: Denies anxiety, depression, suicidal ideation or suicidal thoughts Endocrine Endocrinology: Denies polydipsia, polyphagia or polyuria Allergic/Immunologic Allergic/Immunologic ED: Denies mouth swelling, tongue swelling or urticaria EXAM Physical Exam Const Vital Signs: 02/27/23 13:31 02/27/23 13:37 02/27/23 13:41 Temperature 97.5 F L Temperature Source Temporal Pulse Rate 81 Respiratory Rate 18 Respiratory Pattern Normal Normal Blood Pressure 119/81 H Blood Pressure Mean 93 Pulse Ox 98 Oxygen Delivery Method Room Air Positive well nourished and well developed General Appearance ED: well developed HEENT Reports normocephalic, head/scalp atraumatic and moist mucous membranes Eyes PERRL and EOMs intact bilaterally Neck no lymphadenopathy, supple and no JVD Chest Wall Chest Narrative: Tender palpation right mid ribs along the inferior aspect of the breast and into the right mid rib angles. I do not appreciate ecchymosis. Resp normal respiratory effort and clear to auscultation bilaterally Cardio regular rate, regular rhythm and no murmurs GI normal to inspection, nondistended, normoactive bowel sounds and non-tender Palpation: soft Back/Spine no CVA tenderness and normal ROM Extremity normal to inspection General Extremety ED: Negative for edema General Extremity: Negative for edema Neuro oriented x3 and CN's II-XII intact bilaterally Sensorium / Orientation: alert Motor Exam: strength 5/5 throughout Psych mental status grossly normal Mood & Affect: Negative for depressed or tearful Skin no wounds Skin Narrative: There is a purpleish like skin discoloration of the lumbar spine region. Patient states that this is chronic and from home heating pad use MDM MDM MDM Narrative Medical decision making narrative: CTA chest obtained demonstrates no obvious fracture or pneumothorax pleural effusion or costochondral separation. I think the patient can be treated conservatively at home. She was advised this may take a while to heal especially if she cartilage. She notes understanding will follow-up as needed Radiography Diagnostic Testing: Clinical Impression(s) from Imaging Studies Chest CT 02/27/23 13:58 IMPRESSION: No acute abnormality is seen. Electronically Signed: Can Dubose MD at 15:11 EST , Discharge Plan Triage Chief Complaint: Chest Other ED Provider: Nael Bejarano Dx/Rx/DC Orders Clinical Impression: Acute chest wall pain, Chest wall contusion Instructions: ED Chest Wall Contusion Prescriptions: No Action metformin 500 MG tablet extended release 24 hr 1,000 tab PO BID Patient Comments: TAKE 1 TABLET BY MOUTH DAILY losartan 25 MG tablet 25 mg PO DAILY Patient Comments: TAKE 1 TABLET BY MOUTH EVERY DAY propranolol 40 MG tablet 40 mg PO DAILY Patient Comments: TAKE 1 TABLET IN THE MORNING AND 1/2 TABLET IN THE EVENING albuterol sulfate 1 PUFF inhaler 1 - 2 puff PO Q4H PRN PRN (Reason: Shortness Of Breath) Patient Comments: INHALE 2 PUFFS INSTRUCTED EVERY 4 HOURS NEEDED FOR WHEEZING/SHORTNESS OF BREATH. clonazepam 1 MG tablet 1 mg PO BID paroxetine HCl 20 MG tablet 40 mg PO DAILY propranolol 20 MG tablet 20 mg PO QHS rosuvastatin 5 MG tablet 5 mg PO DAILY rosuvastatin 5 mg tablet Patient Comments: TAKE 1 TABLET BY MOUTH EVERYDAY AT BEDTIME Trulicity 1.5 mg/0.5 mL pen injector SUBCUT Patient Comments: inject 0.5 milliliters ( 1 AND 1/2 milligrams ) subcutaneously every week omeprazole 40 mg capsule,delayed release(DR/EC) 40 mg PO DAILY Qty: 30 0RF Primary Care Provider: Kenia Leon Referrals: Kenia Leon MD [Primary Care Provider] - As Needed Disposition Disposition: Home, Self Care
[2023-02-27 15:35] VITALS: BP 128/88; PULSE 63; RESP 16; O2SAT 99
== END 2023-02-27 15:44 | disposition home or self-care (01) ==
PROVIDERS: Emergency Provider Emergency Medicine; PCP Internal Medicine; Referring Provider Emergency Medicine; Visit Provider Emergency Medicine
DX: S20.20XA Contusion of thorax, unspecified, initial encounter (principal); W01.0XXA Fall on same level from slipping, tripping and stumbling without subsequent striking against object, initial encounter; E78.5 Hyperlipidemia, unspecified; F17.210 Nicotine dependence, cigarettes, uncomplicated; Z79.899 Other long term (current) drug therapy
CPT/HCPCS: 71250; 99284